=== PATIENT | female | born 1945 | race Caucasian/White ===

== ENCOUNTER 2022-02-06 11:47 | Emergency (ER) | payer MEDICARE, BC ==
[~2022-02-06] VITALS: Ht 167.6 cm; Wt 55.5 kg
[2022-02-06 11:51] VITALS: BP 152/67
[2022-02-06 14:43] LABS: BASOPHILS # (AUTO) 0.1 X10'3 (0-0.2); BASOPHILS % (AUTO) 0.8 % (0-1); EOSINOPHILS # (AUTO) 0.2 X10'3 (0-0.9); EOSINOPHILS % (AUTO) 2.1 % (0-6); HEMOGLOBIN 12.3 g/dl (12.0-16.0); LYMPHOCYTES % (AUTO) 16.8 % (21-51); MEAN CORPUSCULAR HEMOGLOBIN 29.9 PG (27.0-31.0); MEAN CORPUSCULAR HGB CONC 33.3 g/dL (33.0-36.5); MEAN CORPUSCULAR VOLUME 89.9 FL (78-98); MEAN PLATELET VOLUME 7.3 FL (7.4-10.4); MONOCYTES # (AUTO) 0.7 X10'3 (0-0.9); MONOCYTES % (AUTO) 5.6 % (2-12); NEUTROPHILS # (AUTO) 8.9 X10'3 (1.8-7.7); NEUTROPHILS % (AUTO) 74.7 % (42-75); PLATELET COUNT 394 X10'3 (140-440); RED BLOOD COUNT 4.12 X10'6 (4.20-5.60); RED CELL DISTRIBUTION WIDTH 13.4 % (11.5-14.5)
[2022-02-06 14:54] LABS: D-DIMER 0.99 MG/L FEU (0-0.50)
[2022-02-06 14:59] LABS: ALANINE AMINOTRANSFERASE 21 U/L (12-78); ALBUMIN/GLOBULIN RATIO 1.1 (1.1-1.5); ALKALINE PHOSPHATASE 67 IU/L (46-116); ANION GAP 9 (8-16); ASPARTATE AMINO TRANSFERASE 13 U/L (10-37); BILIRUBIN,TOTAL 0.4 MG/DL (0.1-1.0); BLOOD UREA NITROGEN 12 MG/DL (7-18); CALCIUM 9.5 MG/DL (8.5-10.1); CHLORIDE 104 MMOL/L (99-107); GLUCOSE 106 MG/DL (70-104); POTASSIUM 4.1 MMOL/L (3.5-5.1); SODIUM 141 MMOL/L (135-145); TOTAL CARBON DIOXIDE 27.6 MMOL/L (24-32); TOTAL PROTEIN 7.7 G/DL (6.4-8.2); eGFR 43 ML/MIN
--- NOTE | 2022-02-06 15:48 | NUR ---
regulatory technician at bedside.
== END 2022-02-06 17:20 | disposition home or self-care (01) ==
LOC: ER 11:48
DX: I82.811 Embolism and thrombosis of superficial veins of right lower extremity (principal); Z88.5 Allergy status to narcotic agent
CPT/HCPCS: 36415; 73610; 73630; 80053; 85025; 85379; 93971; 99285

== ENCOUNTER 2024-05-05 10:43 | Emergency (ER) | payer MEDICARE, BC ==
[~2024-05-05] VITALS: Ht 165.1 cm; Wt 60.0 kg
[2024-05-05 10:54] VITALS: BP 169/70; PULSE 92; RESP 16; TEMP 97.5; O2SAT 99
[2024-05-05] MEDS ORDERED: iohexol 300mg/ml 100ml inj. ONE (14:38)
== END 2024-05-05 15:33 | disposition home or self-care (01) ==
LOC: ER 10:43
DX: H53.2 Diplopia (principal); Z88.8 Allergy status to other drugs, medicaments and biological substances
CPT/HCPCS: 70450; 72125; 99284; Q9967